=== PATIENT | female | born 2005 | race Caucasian/White ===

== ENCOUNTER 2025-06-12 00:07 | Emergency (ER) | payer OTHER ==
[2025-06-12 00:38] LABS: Glucose, Urine (Dipstick) Normal (Negative); Leukocyte 500 (Negative); Protein, Urine (Dipstick) 30 mg/dl (Neg-Trace); Specific Gravity, Urine 1.020 (1.005-1.030)
[2025-06-12 00:40] LABS: Pregnancy Test - Urine (BHCG) Negative (Negative); Pregu Control Background? CLEAR/WHITE (CLR/WHITE); Pregu Control Bar Appear? YES (CONTROL BAR)
[2025-06-12 00:47] LABS: CAUTI Indications for Culture Pelvic or flank pain; RBC/HPF 0-3 HPF (0-3)
[2025-06-12 00:48] LABS: Bacteria/HPF 4+ HPF (None Seen); Urine Culture Reflex No No
[2025-06-12 01:20] LABS: #Basophils 0.04 10x3/uL (0.0-0.2); #Eosinophils 0.16 10x3/uL (0.0-0.5); #Monocytes 0.87 10x3/uL (0.0-1.1); #Neutrophils 9.02 10x3/uL (1.5-8.4); %Basophils 0.3 % (0.0-2.0); %Eosinophils 1.2 % (0.0-6.0); %Lymphocytes 24.7 % (18.0-47.0); %Monocytes 6.5 % (0.0-10.0); %Neutrophils 67.1 % (40.0-75.0); Hematocrit 40.5 % (34.9-44.5); Hemoglobin 13.4 g/dL (12.0-15.5); Mean Corpuscular Hemoglobin 27.9 pg (27.0-33.0); Mean Corpuscular Volume 84.2 fL (81.6-98.3); Platelet Count 302 10x3/uL (150-450); Red Blood Cell (RBC) Count 4.81 10x6/uL (3.90-5.03); White Blood Cell (WBC) Count 13.44 10x3/uL (3.5-10.5)
[2025-06-12 01:30] LABS: BHCG - Serum Negative (NEGATIVE); Pregs Control Background? CLEAR/WHITE (CLR/WHITE); Pregs Control Bar Appear? YES (CONTROL BAR)
[2025-06-12 01:39] LABS: ALT (SGPT) 45 U/L (Less than 34); AST (SGOT) 43 U/L (11-34); Albumin 4.2 g/dL (3.1-4.5); Alkaline Phosphatase 105 U/L (40-100); Anion Gap 17 mmol/L (10-20); BUN (Urea Nitrogen) 15 mg/dL (7.0-18.7); Bilirubin, Total 0.3 mg/dL (0.3-1.2); Calc. Creatinine Clearance 0 mL/min (70-130); Calcium 9.0 mg/dL (7.8-10.44); Carbon Dioxide 21 mmol/L (22-29); Chloride 105 mmol/L (98-107); Globulin 3.9 g/dL (2.4-3.5); Glucose 88 mg/dL (70-105); Lipase 15 U/L (8-78); Potassium 3.9 mmol/L (3.5-5.1); Sodium 139 mmol/L (136-145)
[2025-06-12] MEDS ORDERED: Ketorolac Tromethamine 30 MG (1 mL) VIAL ONE (01:39)
[2025-06-12] MEDS ORDERED: cefTRIAXone (ROCEPHIN) 1 GM VIAL ONE (03:17)
[2025-06-12] MEDS ORDERED: Iopamidol 300 61% 100 ML VIAL FS ONE (09:42)
== END 2025-06-12 04:13 | disposition home or self-care (01) ==
LOC: CSHERS 00:07
DX: N39.0 Urinary tract infection, site not specified (principal); N83.201 Unspecified ovarian cyst, right side
CPT/HCPCS: 74177; 76856; 80053; 81001; 81025; 83690; 84703; 85025; 93976; 96374; 96375; J0696; J1885; Q9967

== ENCOUNTER 2025-07-12 22:14 | Emergency (ER) | payer OTHER | END 2025-07-12 23:15 | disposition home or self-care (01) | LOC: CSHERS 22:14 | DX: U07.1 COVID-19 (principal) | CPT/HCPCS: 99283 ==